=== PATIENT | female | born 1980 | race Caucasian/White ===

== ENCOUNTER → 2022-11-02 09:19 | Outpatient (CLI) | payer BC, SELFPAY ==
--- NOTE | ~2022-11-02 | MM_ITS ---
EXAMINATION: MM scrn tej implant BI w jonna HISTORY: Screening mammogram TECHNIQUE: Craniocaudal and mediolateral oblique 3-D tomosynthesis images with implant displacement a nd synthetic 2-D images were generated. Craniocaudal and mediolateral oblique views of the breasts wi thout implant displacement were obtained using full field digital mammography. CAD analysis was submi tted and interpreted. COMPARISON: No prior mammogram is available for comparison at this institution. BREAST PARENCHYMAL COMPOSITION: The breasts are heterogeneously dense, which may obscure small masses . FINDINGS: There are bilateral subpectoral saline implants. There are asymmetries medial aspect of the right breast on CC view. There are no suspicious masses, calcifications or architectural distortion in the left breast to suggest malignancy. IMPRESSION: 1. Focal asymmetry medially in the right breast on CC view. 2. Additional mammographic views and possible breast ultrasound are recommended. BI-RADS Category 0: Incomplete: Needs additional imaging evaluation. Reviewed, dictated and finalized at location A. [employer] IMPRESSION: 1. Focal asymmetry medially in the right breast on CC view. 2. Additional mammographic views and possible breast ultrasound are recommended . BI-RADS Category 0: Incomplete: Needs additional imaging evaluation.
== END ==
PROVIDERS: PCP Family Medicine
DX: Z12.31 Encounter for screening mammogram for malignant neoplasm of breast (principal); R92.8 Other abnormal and inconclusive findings on diagnostic imaging of breast
CPT/HCPCS: 77063; 77067

== ENCOUNTER → 2023-01-20 08:40 | Outpatient (CLI) | payer BC, SELFPAY ==
--- NOTE | ~2023-01-20 | MMUS_ITS ---
EXAMINATION: MM diag tej implant RT w jonna, US breast BI limited HISTORY: Right breast asymmetry on screening mammogram and left nipple discharge TECHNIQUE: Spot compression craniocaudal, mediolateral, and mediolateral oblique 3-D tomosynthesis im ages with implant displacement of the right breast were performed and synthetic 2-D images were gener ated. Mediolateral views of the right breast without implant displacement were obtained using full f ield digital mammography. CAD analysis was submitted and interpreted. High resolution limited bilater al breast ultrasound was performed. COMPARISON: 11/02/2022 FINDINGS: MAMMOGRAPHIC FINDINGS: Right breast: There is a persistent asymmetry in the anterior third of the slightly inner breast at t he 3:00 location 3 cm from the nipple. No suspicious calcification or architectural distortion are id entified. ULTRASOUND: Right breast: There is a 5 mm x 3 mm oval, circumscribed, parallel, hypoechoic mass with no posterior features or internal vascularity at the 3:00 location near the nipple. Left breast: There is a 10 mm x 7 mm oval, circumscribed, parallel, hypoechoic mass with no posterior features or internal vascularity at the 1:00 location near the nipple. Multiple adjacent smaller mas ses with similar sonographic features are identified. IMPRESSION: 1. Small sonographically detected masses abutting one another near the nipple of the left breast at t he 1:00 location. Given history of nipple discharge, ultrasound-guided biopsy is recommended. 2. Probably benign right breast mass. Follow-up right diagnostic mammogram and ultrasound in six katja hs are recommended. BI-RADS category 4, suspicious findings. Reviewed, dictated and finalized at location A. IMPRESSION: 1. Small sonographically detected masses abutting one another near the nipple o f the left breast at the 1:00 location. Given history of nipple discharge, ultr asound-guided biopsy is recommended. 2. Probably benign right breast mass. Follow-up right diagnostic mammogram and ultrasound in six months are recommended. BI-RADS category 4, suspicious findings.
== END ==
DX: N63.21 Unspecified lump in the left breast, upper outer quadrant (principal); N63.10 Unspecified lump in the right breast, unspecified quadrant
CPT/HCPCS: 76642; 77061; 77065; G0279